=== PATIENT | female | born 1995 ===

== ENCOUNTER 2018-06-02 13:42 | Emergency (ER) | payer BC, SELFPAY ==
[2018-06-02] MEDS ORDERED: DIPHENHYDRAMINE 50 MG/ML VIAL ONE (15:49)
[2018-06-02] MEDS ORDERED: NA CHLORIDE 0.9% 1,000 ML ONE (15:49)
[2018-06-02] MEDS ORDERED: METOCLOPRAMIDE 10 MG/2mL INJ ONE (15:49)
--- NOTE | 2018-06-02 16:58 | EDPHYS ---
Physician Documentation [facility] Name: Yelena Hill Age: 22 yrs Sex: Female : 1995 Arrival Date: 06/02/2018 Time: 13:50 Bed 25 Private MD: None, None; Out, of Town, Town; out of town, doctor ED Physician Joel Paz HPI: 06/02 16:27 This 22 yrs old Female presents to ER via Ambulatory with complaints of NECK jr8 PAIN/Headache/URI. 16:27 Patient stated that she has had cough, sinus congestion, body aches, chills, headache, jr8 and neck pain. 8 weeks . Onset: The symptoms/episode began/occurred acutely, 3 day(s) ago. Severity of symptoms: At their worst the symptoms were moderate. The patient has not experienced similar symptoms in the past. The patient has not recently seen a physician. 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 - Social history:: Smoking status: Patient/guardian denies using tobacco. - Ebola Screening: : No symptoms or risks identified at this time. ROS: 16:27 Eyes: Negative for injury, pain, redness, and discharge, Cardiovascular: Negative for jr8 chest pain, palpitations, and edema, Abdomen/GI: Negative for abdominal pain, nausea, vomiting, diarrhea, and constipation, Back: Negative for injury and pain, MS/Extremity: Negative for injury and deformity, Skin: Negative for injury, rash, and discoloration. 16:27 Constitutional: Positive for body aches, chills. 16:27 ENT: Positive for rhinorrhea, sinus congestion, sore throat. 16:27 Neck: Positive for pain with movement, pain at rest, stiffness. 16:27 Respiratory: Positive for cough, Negative for dyspnea on exertion, shortness of breath, sputum production, wheezing. 16:27 Neuro: Positive for headache, Negative for altered mental status, dizziness, gait disturbance, seizure activity, speech changes, syncope, weakness. Exam: 16:27 Head/Face: Normocephalic, atraumatic. Eyes: Pupils equal round and reactive to light, jr8 extra-ocular motions intact. Lids and lashes normal. Conjunctiva and sclera are non-icteric and not injected. Cornea within normal limits. Periorbital areas with no swelling, redness, or edema. ENT: Nares patent. No nasal discharge, no septal abnormalities noted. Tympanic membranes are normal and external auditory canals are clear. Oropharynx with no redness, swelling, or masses, exudates, or evidence of obstruction, uvula midline. Mucous membranes moist. Cardiovascular: Regular rate and rhythm with a normal S1 and S2. No gallops, murmurs, or rubs. Normal PMI, no JVD. No pulse deficits. Respiratory: Lungs have equal breath sounds bilaterally, clear to auscultation and percussion. No rales, rhonchi or wheezes noted. No increased work of breathing, no retractions or nasal flaring. Abdomen/GI: Soft, non-tender, with normal bowel sounds. No distension or tympany. No guarding or rebound. No evidence of tenderness throughout. Back: No spinal tenderness. No costovertebral tenderness. Full range of motion. Skin: Warm, dry with normal turgor. Normal color with no rashes, no lesions, and no evidence of cellulitis. MS/ Extremity: Pulses equal, no cyanosis. Neurovascular intact. Full, normal range of motion. Neuro: Awake and alert, GCS 15, oriented to person, place, time, and situation. Cranial nerves II-XII grossly intact. Motor strength 5/5 in all extremities. Sensory grossly intact. Cerebellar exam normal. Normal gait. 16:27 Neck: External neck: is normal, C-spine: appears grossly normal, no vertebral tenderness, no crepitus, Thyroid: appears normal, Trachea: is midline with no obvious abnormalities, ROM/movement: pain, that is mild, with any movement, limited range of motion, is not appreciated, Meningeal signs: Kernig's sign is negative, Brudzinski's sign is negative, nuchal rigidity, is not appreciated. Vital Signs: 14:20 BP 127 / 70; Pulse 72; Resp 18 S; Temp 98.9(O); Pulse Ox 100% on R/A; Weight 88.45 kg aa5 (R); Height 5 ft. 3 in. (160.02 cm) (R); Pain 5/10; 14:20 Body Mass Index 34.54 (88.45 kg, 160.02 cm) aa5 MDM: 14:42 Patient medically screened. jr8 16:55 Differential Diagnosis flu, viral illness, sinusitis, acute URI, meningitis, sepsis. jr8 Data reviewed: vital signs, nurses notes, lab test result(s), and as a result, I will discharge patient. Data interpreted: Pulse oximetry: on room air is 100 %. Interpretation: normal. Counseling: I had a detailed discussion with the patient and/or guardian regarding: the historical points, exam findings, and any diagnostic results supporting the discharge/admit diagnosis, lab results, the need for outpatient follow up, a family practitioner, to return to the emergency department if symptoms worsen or persist or if there are any questions or concerns that arise at home. Response to treatment: the patient's symptoms have markedly improved after treatment, patient is well hydrated. 06/02 15:40 Order name: Influenza Screen (a \T\ B); Complete Time: 16:39 sv 06/02 15:40 Order name: IV; Complete Time: 16:04 sv Administered Medications: 15:58 Drug: NS 0.9% 1000 ml Route: IV; Rate: 1000 ml; Site: right antecubital; sv 17:00 Follow up: Response: No adverse reaction; IV Status: Completed infusion; IV Intake: sv 1000ml 15:58 Drug: Reglan 10 mg Route: IVP; Site: right antecubital; sv 16:15 Follow up: Response: No adverse reaction sv 16:00 Drug: Benadryl 25 mg Route: IVP; Site: right antecubital; sv 16:15 Follow up: Response: No adverse reaction sv Disposition: 06/02/18 16:57 Discharged to Home. Impression: Acute upper respiratory infection, unspecified, Viral Cephalgia . - Condition is Stable. - Discharge Instructions: Upper Respiratory Infection, Adult, Viral Respiratory Infection. - Medication Reconciliation Form, Thank You Letter, Antibiotic Education, Prescription Opioid Use form. - Follow up: Private Physician; When: 5 - 6 days; Reason: Recheck today's complaints, Continuance of care, Re-evaluation by your physician. - Problem is new. - Symptoms have improved. Addendum: 06/05/2018 08:11 Co-signature as Attending Physician, Joel Paz MD I agree with the assessment and c tavares plan of care. Signatures: Dispatcher [employer] Esmer Cross, RN Joel Amanda MD MD cha Calderon, Audri RN RN aa5 Rico Bonner PA PA jr8 Corrections: (The following items were deleted from the chart) 06/02 17:14 16:57 06/02/2018 16:57 Discharged to Home. Impression: Acute upper respiratory sv infection, unspecified; Viral Cephalgia . Condition is Stable. Forms are Medication Reconciliation Form, Thank You Letter, Antibiotic Education, Prescription Opioid Use. Follow up: Private Physician; When: 5 - 6 days; Reason: Recheck today's complaints, Continuance of care, Re-evaluation by your physician. Problem is new. Symptoms have improved. jr8
--- NOTE | 2018-06-02 16:58 | ER ---
Nurse's Notes [facility] Name: Yelena Hill Age: 22 yrs Sex: Female : 1995 Arrival Date: 06/02/2018 Time: 13:50 Bed 25 Private MD: None, None; Out, of Town, Town; out of town, doctor Diagnosis: Acute upper respiratory infection, unspecified;Viral Cephalgia Presentation: 06/02 14:17 Presenting complaint: Patient states: "I have a cough and runny nose but today I went aa5 to Urgent care and they sent me here". Urgent care reports positive nuchal rigidity upon exam and pt sent to ER to r/o meningitis. Pt denies fever. Pt c/o neck pain. Transition of care: patient was not received from another setting of care. Onset of symptoms was May 2018. Risk Assessment: Do you want to hurt yourself or someone else? Patient reports no desire to harm self or others. Care prior to arrival: None. 14:17 Method Of Arrival: Ambulatory [facility] 14:17 Acuity: GARCIA 3 aa5 15:40 Initial Sepsis Screen: Does the patient meet any 2 criteria? No. Patient's initial sv sepsis screen is negative. Does the patient have a suspected source of infection? No. Patient's initial sepsis screen is negative. 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 - Social history:: Smoking status: Patient/guardian denies using tobacco. - Ebola Screening: : No symptoms or risks identified at this time. Screenin:40 Abuse screen: Denies threats or abuse. Denies injuries from another. Nutritional sv screening: No deficits noted. Tuberculosis screening: No symptoms or risk factors identified. Fall Risk None identified. Assessment: 15:40 General: Appears in no apparent distress. uncomfortable, well developed, Behavior is sv calm, cooperative, appropriate for age. Pain: Complains of pain in back of neck Pain currently is 5 out of 10 on a pain scale. Pain began 2-3 days ago. Is continuous, Aggravated by increased activity. Neuro: Level of Consciousness is awake, alert, obeys commands, Oriented to person, place, time, situation, Moves all extremities. Full function Gait is steady, Speech is normal. Respiratory: Respiratory effort is even, unlabored, Respiratory pattern is regular, symmetrical. Derm: Skin is pink, warm \\T\\ dry. Musculoskeletal: Range of motion: intact in all extremities. 17:12 Reassessment: Patient appears in no apparent distress at this time. No changes from sv previously documented assessment. Patient and/or family updated on plan of care and expected duration. Pain level reassessed. Patient is alert, oriented x 3, equal unlabored respirations, skin warm/dry/pink. Vital Signs: 14:20 BP 127 / 70; Pulse 72; Resp 18 S; Temp 98.9(O); Pulse Ox 100% on R/A; Weight 88.45 kg aa5 (R); Height 5 ft. 3 in. (160.02 cm) (R); Pain 5/10; 14:20 Body Mass Index 34.54 (88.45 kg, 160.02 cm) aa5 ED Course: 13:50 Patient arrived in ED. dl4 13:51 out of town, doctor is Private Physician. dl4 13:51 Out, of Town is Private Physician. dl4 13:51 None, None is Private Physician. dl4 14:17 Arm band placed on. aa5 14:19 Triage completed. aa5 14:42 [facility] jr8 14:42 Joel Paz MD is Attending Physician. jr8 15:31 Esmer Gregg RN is Primary Nurse. sv 15:39 Nurse Practitioner and/or Physician Linen Supervisor to see patient. sv 15:40 Patient has correct armband on for positive identification. Bed in low position. Call sv light in reach. Adult w/ patient. Door closed. Warm blanket given. Head of bed elevated. 15:50 Missed attempt(s): 22 gauge in left antecubital area. Bleeding controlled, band aid sv applied, catheter tip intact. 15:55 Inserted saline lock: 20 gauge in right antecubital area, using aseptic technique. sv Flushed right antecubital with 5 ml normal saline. 17:12 No provider procedures requiring assistance completed. IV discontinued, intact, sv bleeding controlled, No redness/swelling at site. Pressure dressing applied. 19:22 Primary Nurse role handed off by Esmer Gregg RN Administered Medications: 15:58 Drug: NS 0.9% 1000 ml Route: IV; Rate: 1000 ml; Site: right antecubital; sv 17:00 Follow up: Response: No adverse reaction; IV Status: Completed infusion; IV Intake: sv 1000ml 15:58 Drug: Reglan 10 mg Route: IVP; Site: right antecubital; sv 16:15 Follow up: Response: No adverse reaction sv 16:00 Drug: Benadryl 25 mg Route: IVP; Site: right antecubital; sv 16:15 Follow up: Response: No adverse reaction sv Intake: 17:00 IV: 1000ml; Total: 1000ml. sv Outcome: 16:57 Discharge ordered by MD. alas 17:13 Discharged to home ambulatory, with family. sv 17:13 Condition: stable 17:13 Discharge instructions given to patient, Instructed on discharge instructions, follow up and referral plans. medication usage, Demonstrated understanding of instructions, follow-up care, medications, Prescriptions given X 1. 17:14 Patient left the ED. sv Signatures: sEmer Gregg, GRACIE RN Kelly Robison RN RN Rico Harden PA PA jr8 Luna, David dl4
== END 2018-06-02 17:14 | disposition home or self-care (01) ==
LOC: ER 13:42
DX: J06.9 Acute upper respiratory infection, unspecified (principal); G44.89 Other headache syndrome; Z3A.08 8 weeks gestation of pregnancy
CPT/HCPCS: 87804; 96361; 96374; 96375; 99283; J2765; J7030